=== PATIENT | female | born 1955 | race Caucasian/White ===

== ENCOUNTER 2016-05-31 16:39 | Emergency (ER) | payer OTHER ==
[2016-05-31 16:46] VITALS: BP 142/70; PULSE 62; TEMP 97.7; BMI 23.3
[2016-05-31] MEDS ORDERED: IBUPROFEN 600 MG TABLET (FP) PO ONE ×2 (16:47→17:07)
--- NOTE | 2016-05-31 16:47 | PDOC ---
Rapid Medical Evaluation Chief Complaint: Pain Time Seen by Provider: 05/31/16 16:42 Medical Evaluation: Allergies Allergy/AdvReac Type Severity Reaction Status Date / Time No Known Allergies Allergy Verified 05/31/16 16:42 05/31/16 16:45 RME Note: I have performed a brief, in-person evaluation of this patient . This patient presents with CC: 1 weekof left lleg pain Pertinent PE findings are: VSS I have ordered: nothing, motrin given in triage The patient will proceed to ED for further evaluation. JR
--- NOTE | 2016-05-31 17:34 | PDOC ---
History of Present Illness - General Chief Complaint: Pain Stated Complaint: LT LEG PAIN Time Seen by Provider: 05/31/16 16:42 History Source: Patient Exam Limitations: No Limitations - History of Present Illness Initial Comments: 05/31/16 17:41 Chief complaint: Left-sided lower back pain radiating down left leg 5 days History of present illness: Patient is a 60-year-old female with a history of lumbar sacral laminectomy 2001, pt. since surgery needs to self caterize few times daily. Is here today due to left-sided lower back pain that radiates down her left leg to her toes that is worse in the last 5 days. Patient reports that she is has pain daily since her surgery however it is worse in the last 5 days. Patient is any numbness of her leg. Patient reports the pain currently as out of 10. Pt. is ambulating without difficulty or limp. 05/31/16 17:48 Timing/Duration: getting worse Severity: severe (left sided lower back radiating down left leg ) Associated Symptoms: reports: denies symptoms Past History - Past Medical History Allergies/Adverse Reactions: Allergies Allergy/AdvReac Type Severity Reaction Status Date / Time No Known Allergies Allergy Verified 05/31/16 16:42 Home Medications: Ambulatory Orders No Home Medications 0 dose .ROUTE UTDICT 11/18/11 Oxycodone HCl/Acetaminophen [Percocet 5-325 mg Tablet] 1 tab PO Q6H PRN #9 tablet MDD 3 05/31/16 Disorders: Yes (must self-catheterize 4xdaily as a result of the laminectomy and fusion per) - Surgical History Neurologic Surgery: Yes (spine) Orthopedic Surgery: Yes (spinal surgery) - Psycho/Social/Smoking Cessation Hx Anxiety: No Suicidal Ideation: No Smoking Status: No Smoking History: Never smoked Have you smoked in the past 12 months: No Number of Cigarettes Smoked Daily: 0 Information on smoking cessation initiated: No Hx Alcohol Use: No Drug/Substance Use Hx: No Substance Use Type: None Review of Systems - Review of Systems Able to Perform ROS?: Yes Constitutional: No: Symptoms Reported HEENTM: No: Symptoms Reported Respiratory: No: Symptoms reported Cardiac (ROS): No: Symptoms Reported ABD/GI: No: Symptoms Reported : Yes: Other (has to self catherize daily since laminectomy 2001) Musculoskeletal: Yes: Back Pain (left sided lower back pain radiates down left leg to ft worse in last 5 days) Integumentary: No: Symptoms Reported Neurological: Yes: Other. No: Unsteady Gait *Physical Exam - Vital Signs Last Vital Signs Temp Pulse Resp BP Pulse Ox 97.7 F 62 18 142/70 100 05/31/16 16:43 05/31/16 16:43 05/31/16 16:43 05/31/16 16:43 05/31/16 16:43 - Physical Exam General Appearance: Yes: Appropriately Dressed Respiratory/Chest: positive: Lungs Clear, Normal Breath Sounds. negative: Chest Tender, Respiratory Distress Cardiovascular: positive: Regular Rhythm, Regular Rate, S1, S2 Musculoskeletal: positive: Decreased Range of Motion (from waist ), Other (left sided lower back pain ). negative: CVA Tenderness, CVA Tenderness (R), CVA Tenderness (L) Extremity: positive: Normal Capillary Refill, Normal Inspection Neurologic: positive: Alert, Normal Response, Motor Strength 5/5 (b/l legs ), Respond to painful stimul (left leg/thigh), Responsive, Sensory Deficit (since laminectomy 2001 decreased sensation to urinate) ED Treatment Course - Medications Given in the ED: ED Medications Discontinued Medications Generic Name Dose Route Start Last Admin Trade Name Freq PRN Reason Stop Dose Admin Ibuprofen 600 mg 05/31/16 16:47 05/31/16 17:21 Motrin - PO 05/31/16 16:48 600 mg ONCE ONE Administration Medical Decision Making - Medical Decision Making 05/31/16 17:48 Patient is a 60-year-old female with a history of lumbar sacral laminectomy 2001 , pt. since surgery needs to self caterize few times daily. Is here today due to left-sided lower back pain that radiates down her left leg to her toes that is worse in the last 5 days. Patient reports that she is has pain daily since her surgery however it is worse in the last 5 days. Patient is any numbness of her leg. Patient reports the pain currently as out of 10. Pt. is ambulating without difficulty or limp. left sided lower back pain with radiculopathy PLAN: xray spine lumbar sacral spine reveals minimal moll retrolisthesis of L4 over L5 likely degenerative. Mild loss of height compression of T11 vertebral body likely old otherwise the height and alignment and vertebral bodies appear unremarkable. There is a moderate narrowing of L4-L5 and L5-S1 intravertebral disc space with mild to moderate degenerative disc disease notes made of a catheter extending from the left lower chest down to the pelvis suggestive of a ventricular peritoneal shunt per Dr. Irizarry percocet 5mg/325 mg po now than every 6 hrs prn severe pain # 9 follow up with ortho 05/31/16 20:05 *DC/Admit/Observation/Transfer Diagnosis at time of Disposition: Lumbar pain with radiation down left leg - Discharge Dispostion Disposition: HOME Condition at time of disposition: Stable - Prescriptions Prescriptions: Oxycodone HCl/Acetaminophen [Percocet 5-325 mg Tablet] 1 tab PO Q6H PRN #9 tablet MDD 3 PRN Reason: Severe Pain - Referrals Referrals: Sully Romero [Primary Care Provider] - Ramin Overton MD [Staff Physician] - - Patient Instructions Additional Instructions: Avoid any strenuous activities or walking for any long distances Follow up with Dr. Overton as soon as possible this week for further evaluation Return to emergency room if any symptoms worsen or new symptoms develop Patient voiced understanding of discharge instructions and all questions were answered.
[2016-05-31] MEDS ORDERED: OXYCODONE/APAP 5/325MG COMBO TABLET PO ONE (19:04)
[2016-05-31] MEDS ORDERED: OXYCODONE/APAP 5/325MG COMBO TABLET ONE (19:12)
== END 2016-05-31 20:48 | disposition home or self-care (01) ==
LOC: JERFT 16:39
DX: M54.16 Radiculopathy, lumbar region (principal); Z98.890 Other specified postprocedural states; N99.89 Other postprocedural complications and disorders of genitourinary system
CPT/HCPCS: 72100-TC; 99281-25

== ENCOUNTER 2017-08-08 16:14 | Emergency (ER) | payer OTHER ==
[2017-08-08 16:27] VITALS: TEMP 97.6; BMI 24.4
--- NOTE | 2017-08-08 16:28 | PDOC ---
Rapid Medical Evaluation Time Seen by Provider: 08/08/17 16:24 Medical Evaluation: Allergies Allergy/AdvReac Type Severity Reaction Status Date / Time No Known Allergies Allergy Verified 08/08/17 16:23 08/08/17 16:24 I have performed a brief in-person evaluation of this patient. The patient presents with a chief complaint of: Left supraorbital headache radiating to occiput Pertinent physical exam findings: No focal deficits I have ordered the following: CTH, CBC, CMP, coags, UA The patient will proceed to the ED for further evaluation. Discharge Disposition - Diagnosis Headache - Referrals - Patient Instructions - Post Discharge Activity
[2017-08-08] MEDS ORDERED: SODIUM CHLORIDE 1,000 ML IV STA (17:02)
[2017-08-08] MEDS ORDERED: KETOROLAC TROMETHAMINE 30 MG/1 ML VIAL IVPUSH ONE (17:02)
[2017-08-08] MEDS ORDERED: METOCLOPRAMIDE HCL INJECTION 10 MG/2 ML VIAL IVPUSH ONE (17:02)
[2017-08-08 17:04] LABS: BASO % 0.8 % (0-2.0); EOS % 0.8 % (0-4.5); HEMATOCRIT 38.1 % (32.4-45.2); HEMOGLOBIN 12.8 GM/dL (10.7-15.3); LYMPH % 33.4 % (8-40); MCH 29.7 pg (25.7-33.7); MCHC 33.7 g/dl (32.0-36.0); MEAN CELL VOLUME 88.1 fl (80-96); MEAN PLT VOLUME 7.7 fl (7.5-11.1); MONO % 8.4 % (3.8-10.2); NEUT % 56.6 % (42.8-82.8); PLATELET COUNT 313 K/MM3 (134-434); RBC 4.33 M/mm3 (3.60-5.2); RDW 13.7 % (11.6-15.6); WHITE BLOOD COUNT 6.1 K/mm3 (4.0-10.0)
[2017-08-08 17:05] LABS: URINE APPEARANCE SLCLOUDY; URINE BILIRUBIN NEGATIVE (<2.0 mg/dL); URINE COLOR LTYELLOW; URINE GLUCOSE (UA) NEGATIVE (NEGATIVE); URINE KETONE NEGATIVE (NEGATIVE); URINE NITRITE POSITIVE (NEGATIVE); URINE PROTEIN NEGATIVE (NEGATIVE); URINE UROBILINOGEN NEGATIVE mg/dL (0.2-1.0)
[2017-08-08 17:30] LABS: INR 1.06 (0.82-1.09)
[2017-08-08 17:39] LABS: URINE LEUK ESTERASE 3+ (NEGATIVE)
[2017-08-08] MEDS ORDERED: METOCLOPRAMIDE HCL INJECTION 10 MG/2 ML VIAL ONE (17:40)
[2017-08-08 17:41] LABS: ANION GAP 6 (8-16); BILIRUBIN,TOTAL 0.3 mg/dL (0.2-1.0); BLOOD UREA NITROGEN 11 mg/dL (7-18); CALCIUM 9.1 mg/dL (8.5-10.1); CHLORIDE 105 mmol/L (98-107); CO2 29 mmol/L (21-32); CREATININE 0.6 mg/dL (0.55-1.02); GLUCOSE,RANDOM 90 mg/dL (74-106); POTASSIUM 3.8 mmol/L (3.5-5.1); SGOT/AST 19 U/L (15-37); SGPT/ALT 26 U/L (12-78); SODIUM 140 mmol/L (136-145); TOT PROT 7.9 g/dl (6.4-8.2)
[2017-08-08] MEDS ORDERED: KETOROLAC TROMETHAMINE 30 MG/1 ML VIAL ONE (17:41)
--- NOTE | 2017-08-08 17:41 | PDOC ---
History of Present Illness - General Chief Complaint: Headache Stated Complaint: HEADACHE Time Seen by Provider: 08/08/17 16:24 History Source: Patient Exam Limitations: Language Barrier - History of Present Illness Initial Comments: 08/08/17 17:41 Patient is 61F with history of a brain tumor HTN, and sacral laminectomy here today complaining of headache that started almost 24 hours ago. Patient states that her headache started insidiously with gradual worsening of her headache. The pain is located on the left side of her head, worse around her left orbit, with associated light sensitivity. Denies fevers, chills, nausea, vomiting. Denies chest pain and shortness of breath. Review of chart shows prior shunt placed, not able to confirm reason for neurosurgery. Past History - Past Medical History Allergies/Adverse Reactions: Allergies Allergy/AdvReac Type Severity Reaction Status Date / Time No Known Allergies Allergy Verified 08/08/17 16:23 Home Medications: Ambulatory Orders No Home Medications 0 dose .ROUTE UTDICT 11/18/11 Oxycodone HCl/Acetaminophen [Percocet 5-325 mg Tablet] 1 tab PO Q6H PRN #9 tablet MDD 3 05/31/16 Cephalexin Monohydrate [Keflex -] 500 mg PO BID #14 capsule 08/08/17 COPD: No Disorders: Yes (must self-catheterize 4xdaily as a result of the laminectomy and fusion per) HTN: Yes - Surgical History Neurologic Surgery: Yes (spine, tumor removed from neck) Orthopedic Surgery: Yes (spinal surgery) - Suicide/Smoking/Psychosocial Hx Smoking Status: No Smoking History: Never smoked Have you smoked in the past 12 months: No Number of Cigarettes Smoked Daily: 0 Information on smoking cessation initiated: No Hx Alcohol Use: No Drug/Substance Use Hx: No Substance Use Type: None Review of Systems - Review of Systems Comments:: 08/08/17 17:44 GENERAL/CONSTITUTIONAL: No fever or chills. No weakness. HEAD, EYES, EARS, NOSE AND THROAT: No change in vision. No sore throat. CARDIOVASCULAR: No chest pain or shortness of breath RESPIRATORY: No cough, wheezing, or hemoptysis. GASTROINTESTINAL: No nausea, vomiting, diarrhea or constipation. GENITOURINARY: No dysuria, frequency, or change in urination. MUSCULOSKELETAL: No joint or muscle swelling or pain. No neck or back pain. SKIN: No rash NEUROLOGIC: Positive for headache. Negative for vertigo, loss of consciousness, or change in strength/sensation. ENDOCRINE: No increased thirst. No abnormal weight change HEMATOLOGIC/LYMPHATIC: No anemia, easy bleeding, or history of blood clots. ALLERGIC/IMMUNOLOGIC: No hives or skin allergy. *Physical Exam - Vital Signs Last Vital Signs Temp Pulse Resp BP Pulse Ox 97.6 F 78 18 126/82 100 08/08/17 16:24 08/08/17 16:24 08/08/17 16:24 08/08/17 16:24 08/08/17 16:24 - Physical Exam Comments: 08/08/17 17:45 GENERAL: Awake, alert, and fully oriented, in no acute distress, wearing sunglasses inside HEAD: No signs of trauma, normocephalic, atraumatic EYES: PERRLA, EOMI, sclera anicteric, conjunctiva clear ENT: Auricles normal inspection, hearing grossly normal, nares patent, oropharynx clear without exudates. Moist mucosa NECK: Normal ROM, supple, no lymphadenopathy, JVD, or masses LUNGS: No distress, speaks full sentences, clear to auscultation bilaterally HEART: Regular rate and rhythm, normal S1 and S2, no murmurs, rubs or gallops, peripheral pulses normal and equal bilaterally. EXTREMITIES: Normal inspection, Normal range of motion, no edema. No clubbing or cyanosis. NEUROLOGICAL: Cranial nerves II through XII grossly intact. Normal speech, normal gait, no focal sensorimotor deficits SKIN: Warm, Dry, normal turgor, no rashes or lesions noted. ED Treatment Course - LABORATORY CBC & Chemistry Diagram: 08/08/17 16:54 08/08/17 16:54 - ADDITIONAL ORDERS Additional order review: Laboratory Results 08/08/17 08/08/17 16:54 16:54 PT with INR 12.00 INR 1.06 Urine Color Ltyellow Urine Appearance Slcloudy Urine pH 5.0 D Ur Specific [place] 1.014 Urine Protein Negative Urine Glucose (UA) Negative Urine Ketones Negative Urine Blood 1+ H Urine Nitrite Positive Urine Bilirubin Negative Urine Urobilinogen Negative Ur Leukocyte Esterase 3+ H 08/08/17 16:54 RBC 4.33 MCV 88.1 MCHC 33.7 RDW 13.7 MPV 7.7 Neutrophils % 56.6 Lymphocytes % 33.4 D Monocytes % 8.4 Eosinophils % 0.8 Basophils % 0.8 Medical Decision Making - Medical Decision Making 08/08/17 17:45 Patient is 61F with history of brain surgery, HTN, sacral laminectomy here today complaining of headache. Story consistent with migraine. CT head is for evaluation for possibility of mass or fluid collection, not for head bleed, which I believe is very unlikely. Neuro exam normal. Will evaluate with basic labs and ct head. Will treat with reglan and IV fluids. 08/08/17 17:48 Laboratory Tests 08/08/17 08/08/17 08/08/17 16:54 16:54 16:54 WBC 6.1 Hgb 12.8 Hct 38.1 Plt Count 313 D INR 1.06 BUN Creatinine Urine Nitrite Positive Ur Leukocyte Esterase 3+ H 08/08/17 16:54 WBC Hgb Hct Plt Count INR BUN 11 Creatinine 0.6 Urine Nitrite Ur Leukocyte Esterase UA positive. CBC normal. INR normal. Will treat with 7 days of keflex. No CVA tenderness. CT head is negative. Will discharge after patient's symptoms improve. 08/08/17 18:31 Patient reassessed. Symptoms have improved. Will discharge home with return precautions. *DC/Admit/Observation/Transfer Diagnosis at time of Disposition: Headache, UTI (urinary tract infection) - Discharge Dispostion Disposition: HOME Condition at time of disposition: Good Decision to Admit order: No - Prescriptions Prescriptions: Cephalexin Monohydrate [Keflex -] 500 mg PO BID #14 capsule - Referrals - Patient Instructions Printed Discharge Instructions: DI for Urinary Tract Infection (UTI), DI for Migraine Additional Instructions: Please return if you have any new, worsening or concerning symptoms. You were prescribed an antibiotic for a urinary tract infection. Please pick the medication up at your pharmacy. The next dose will be due tomorrow morning. Please take the entire prescription, even if you feel better. Please call to make an appointment with your primary care physician this week. - Post Discharge Activity
[2017-08-08 17:42] LABS: ALK PHOS 128 U/L (45-117)
[2017-08-08] MEDS ORDERED: CEPHALEXIN MONOHYDRATE 500 MG CAPSULE (UD) PO ONE (17:49)
--- NOTE | 2017-08-08 18:33 | PDOC ---
Attending Attestation - HPI HPI: 08/08/17 18:34 The patient is a 61 year old female with HTN, brain tumor, left sided shunt ( brain, for bleeding) and lumbar sacral laminectomy (2001) presents to the emergency department complaining of headache since last night. The patient reports pain is on the left side of the head, which radiates to the back of her head, progressively worsening, with light sensitivity. Patient denies fever, chills, cough, and dizziness. Patient denies chest pain, diaphoresis, palpitations, and shortness of breath. Patient denies nausea, vomiting, diarrhea, and constipation. Patient denies dysuria, frequency, urgency, and hematuria. Allergies: NKDA Social history: None reported PCP: Sully Garcia - Physicial Exam PE: 08/08/17 18:34 GENERAL: Well-appearing, well-nourished. No apparent distress. HEENT: Normocephalic, atraumatic. PERRL, EOM intact. CARDIOVASCULAR: Normal S1, S2. Regular rate and rhythm. PULMONARY: Clear to auscultation bilaterally. ABDOMEN: Soft, non-distended, non-tender. EXTREMITIES: Normal ROM in all four extremities. No gross deformities. SKIN: Warm, dry. No rash NEUROLOGICAL: No gross or motor deficit. No focal neurological deficits. - Medical Decision Making 08/08/17 18:34 Documentation prepared by Heather Zambrano, acting as medical technologist blood bank for Mary Jo Rock MD. <Heather Zambrano - Last Filed: 08/08/17 18:34> - ED Attending Attestation I have performed the following: I have examined & evaluated the patient, The case was reviewed & discussed with the resident, I agree w/resident's findings & plan, Exceptions are as noted - Medical Decision Making 08/09/17 00:00 61 yo female has c/o of persistent headache. She does have a history in the remote past of brain tumor ct scan of brain negative for any acute intracranial pathology IMP tension headache plan followup with neuro if they become recurrent <Mary Jo Rock - Last Filed: 08/09/17 00:02>
[2017-08-08] MEDS ORDERED: CEPHALEXIN MONOHYDRATE 500 MG CAPSULE (UD) ONE (18:47)
[2017-08-08 19:01] VITALS: BP 109/58; PULSE 72
[2017-08-08 19:37] LABS: EPI CELLS RARE /HPF (FEW); URINE BACTERIA RARE /hpf (NONE SEEN); URINE MUCUS RARE
== END 2017-08-08 18:55 | disposition home or self-care (01) ==
LOC: JER 16:14
DX: R51 Headache (principal); N39.0 Urinary tract infection, site not specified; I10 Essential (primary) hypertension; Z86.011 Personal history of benign neoplasm of the brain
CPT/HCPCS: 36415; 70450-TC; 80053; 81003; 81015; 85025; 85610; 99283-25; J7030

== ENCOUNTER 2018-01-12 11:47 | Emergency (ER) | payer OTHER ==
[2018-01-12 11:54] VITALS: BP 137/65; PULSE 83; TEMP 98; BMI 25.7
--- NOTE | 2018-01-12 12:24 | PDOC ---
History of Present Illness - General Chief Complaint: Back Pain Stated Complaint: LEG PAIN Time Seen by Provider: 01/12/18 12:07 History Source: Patient, Manager Enrollment Used (#[id number]) Exam Limitations: Clinical Condition - History of Present Illness Initial Comments: 01/12/18 12:25 Patient with history of chronic lower back pain status post spine surgery 4 years ago present with complain of worsening lower back pain which has not been responding to her gabapentin medication. Patient reports she was told she had patient nerve for years ago and had to have surgery done. Patient reports she has been having back pain since the surgery area patient hasn't follow-up for over a year now. Patient reported pain radiating to back of right thigh. Patient denies any other symptoms Timing/Duration: 1 week Past History - Past Medical History Allergies/Adverse Reactions: Allergies Allergy/AdvReac Type Severity Reaction Status Date / Time No Known Allergies Allergy Verified 01/12/18 11:51 Home Medications: Ambulatory Orders Methocarbamol [Robaxin -] 500 mg PO TID #21 tablet 01/12/18 Naproxen [Naprosyn] 500 mg PO BID PRN #30 tablet 01/12/18 Oxycodone HCl/Acetaminophen [Percocet 5-325 mg Tablet] 1 tab PO Q6H PRN #5 tablet MDD 2 01/12/18 COPD: No Disorders: Yes (must self-catheterize 4xdaily as a result of the laminectomy and fusion per) HTN: Yes - Surgical History Neurologic Surgery: Yes (spine, tumor removed from neck) Orthopedic Surgery: Yes (spinal surgery) - Suicide/Smoking/Psychosocial Hx Smoking Status: No Smoking History: Never smoked Have you smoked in the past 12 months: No Number of Cigarettes Smoked Daily: 0 Hx Alcohol Use: No Drug/Substance Use Hx: No Substance Use Type: None Review of Systems - Review of Systems Able to Perform ROS?: Yes Is the patient limited Sami proficient: No Constitutional: No: Weakness Respiratory: No: Symptoms reported Cardiac (ROS): No: Symptoms Reported ABD/GI: No: Symptoms Reported Musculoskeletal: Yes: Back Pain (right side), Muscle Pain (lower back). No: Muscle Weakness Neurological: No: Numbness, Tingling All Other Systems: Reviewed and Negative *Physical Exam - Vital Signs Last Vital Signs Temp Pulse Resp BP Pulse Ox 98.0 F 83 18 137/65 100 10/18/18 11:52 01/12/18 11:52 01/12/18 11:52 01/12/18 11:52 01/12/18 11:52 - Physical Exam Comments: 01/12/18 12:31 GENERAL: Well developed, well nourished. Awake and alert. No acute distress. CARDIOVASCULAR: Regular rate and rhythm. No murmurs, rubs, or gallops. PULMONARY: No evidence of respiratory distress. Lungs clear to auscultation bilaterally. No wheezing, rales or rhonchi. ABDOMINAL: Soft. Non-tender. Non-distended. No rebound or guarding. No organomegaly. Normoactive bowel sounds MUSCULOSKELETAL : mild tenderness over posterior paravertebral muscle of right lower lumbosacral of L2-S2. No bony deformities EXTREMITIES: No cyanosis. No clubbing. No edema. No calf tenderness. SKIN: Warm and dry. Normal capillary refill. No rashes. No jaundice. NEUROLOGICAL: Alert, awake, appropriate. No motor deficits in the lower extremities. Gait is normal without ataxia. PSYCHIATRIC: Cooperative. Good eye contact. Appropriate mood and affect. General Appearance: Yes: Nourished, Appropriately Dressed, Mild Distress Medical Decision Making - Medical Decision Making 01/12/18 12:31 Patient with history of chronic lower back pain status post lower back surgery 4 years ago presenting with complain of worsening lower back pain radiating to right posterior leg. Denies any new trauma or injury. Exam significant for moderate tenderness to lumbosacral spine. X-ray of lumbosacral ordered. Toradol 60 mg IM given for pain. Treat based on imaging results 01/12/18 13:14 x-rays of lumbosacral show no acute spine pathology. tube for RACKMAN shunt visible in periteneal cavity. patient had MRI done 2 months ago and being follow-up by neurology. patient stable for discharge with orthopedics follow-up *DC/Admit/Observation/Transfer Diagnosis at time of Disposition: Lumbago with sciatica, right side Qualifiers: Chronicity: chronic Back pain laterality: right Qualified Code(s): M54.41 - Lumbago with sciatica, right side - Discharge Dispostion Disposition: HOME Condition at time of disposition: Stable Decision to Admit order: No - Prescriptions Prescriptions: Methocarbamol [Robaxin -] 500 mg PO TID #21 tablet Naproxen [Naprosyn] 500 mg PO BID PRN #30 tablet PRN Reason: Back Pain Oxycodone HCl/Acetaminophen [Percocet 5-325 mg Tablet] 1 tab PO Q6H PRN #5 tablet MDD 2 PRN Reason: severe back pain - Referrals Referrals: Sully Romero [Primary Care Provider] - Pop Alvarez MD [Staff Physician] - Piter Herbert MD [Staff Physician] - - Patient Instructions Printed Discharge Instructions: DI for Sciatica, DI for Back Pain With Sciatica Additional Instructions: Take medications as prescribed for back pain. Apply heat therapy to lower back. Follow-up with preferred neurosurgery for follow-up and possible MRI of lower back - Post Discharge Activity
[2018-01-12] MEDS ORDERED: KETOROLAC TROMETHAMINE 60 MG/2 ML VIAL IM ONE (12:25)
[2018-01-12] MEDS ORDERED: KETOROLAC TROMETHAMINE 60 MG/2 ML VIAL ONE (12:26)
== END 2018-01-12 13:26 | disposition home or self-care (01) ==
LOC: JERFT 11:47
PROC: 3E0233Z Introduction of Anti-inflammatory into Muscle, Percutaneous Approach (ICD-10-PCS; principal; 2018-01-12)
DX: M54.41 Lumbago with sciatica, right side (principal); Z87.448 Personal history of other diseases of urinary system; Z96.89 Presence of other specified functional implants
CPT/HCPCS: 72100-TC-FY; 99281-25

== ENCOUNTER 2018-02-03 16:12 | Emergency (ER) | payer OTHER ==
--- NOTE | 2018-02-03 16:36 | PDOC ---
Rapid Medical Evaluation Time Seen by Provider: 02/03/18 16:34 Medical Evaluation: Allergies Allergy/AdvReac Type Severity Reaction Status Date / Time No Known Allergies Allergy Verified 01/12/18 11:51 02/03/18 16:34 Pt presents for low back pain radiating down the L lower leg. Pt states she has been seen multiple times for her pain. Exam: Pt walking with limp. No obvious neuro deficit Orders: nothing Pt to proceed to ED for further evaluation Discharge Disposition - Diagnosis Low back pain - Referrals - Patient Instructions - Post Discharge Activity
[2018-02-03 16:39] VITALS: BP 131/61; PULSE 79; TEMP 98.8; BMI 24.5
--- NOTE | 2018-02-03 17:50 | PDOC ---
History of Present Illness - General Chief Complaint: Back Pain Stated Complaint: FOOT PAIN Time Seen by Provider: 02/03/18 16:34 History Source: Patient Exam Limitations: No Limitations - History of Present Illness Initial Comments: CHIEF COMPLAINT: 62 y/o female with chronic low back pain c/o continued left leg pain for over 6 months. HISTORY OF PRESENT ILLNESS: The patient was seen here about 1 month ago with the same complaint. She denies any new or recent injury or fall. Xray on was negative. MRI of lumbar spine in november was unchanged from 07/2016. The patient was taking naproxen and percocet, continues to take gabapentin without relief. She states she has trouble sleeping because of the pain. She denies saddle anesthesia, numbness/tingling to LEs. THe patient has not f/u with her PMD for this chronic issue. Vital signs on arrival are within normal limits. REVIEW OF SYSTEMS: GENERAL/CONSTITUTIONAL: No fever/chills. No weakness. No weight change. GENITOURINARY: No dysuria, frequency, or change in urination. No bowel or bladder incontinence MUSCULOSKELETAL: +left low back pain radiating to left leg. No joint or muscle swelling or pain. No neck pain. SKIN: No rash or easy bruising. NEUROLOGIC: No headache, vertigo, loss of consciousness, or loss of sensation. PHYSICAL EXAM: GENERAL: The patient is awake, alert, and fully oriented, in no acute distress. HEAD: Normal with no signs of trauma. ABDOMEN: Soft, non-distended, non-tender even to deep palpation, no hepatomegaly or splenomegaly, no masses. BACK: No midline lumbar spine TTP or step offs. EXTREMITIES: Normal range of motion, no edema. Pain with palpation of left gluteal muscles. Very tight left piriformis muscle. NEUROLOGICAL: Normal speech, normal gait. CN II-XII grossly intact. No saddle anesthesia. SKIN: Warm, dry, normal turgor, no rashes or lesions noted. Past History - Past Medical History Allergies/Adverse Reactions: Allergies Allergy/AdvReac Type Severity Reaction Status Date / Time No Known Allergies Allergy Verified 02/03/18 17:30 Home Medications: Ambulatory Orders Diazepam [Valium] 5 mg PO BID #12 tablet MDD 3 02/03/18 COPD: No Disorders: Yes (must self-catheterize 4xdaily as a result of the laminectomy and fusion per) HTN: Yes - Surgical History Neurologic Surgery: Yes (spine, tumor removed from neck) Orthopedic Surgery: Yes (spinal surgery) - Immunization History Immunization Up to Date: Yes - Suicide/Smoking/Psychosocial Hx Smoking Status: No Smoking History: Never smoked Have you smoked in the past 12 months: No Number of Cigarettes Smoked Daily: 0 Hx Alcohol Use: No Drug/Substance Use Hx: No Substance Use Type: None *Physical Exam - Vital Signs Last Vital Signs Temp Pulse Resp BP Pulse Ox 98.8 F 79 16 131/61 99 02/03/18 16:35 02/03/18 16:35 02/03/18 16:35 02/03/18 16:35 02/03/18 16:35 Medical Decision Making - Medical Decision Making A/P: 62 y/o female with chronic low back pain and left sided sciatica issues for over 3 months. Patient was seen here 1 month ago with negative lumbar spine xray. Lumbar MRI taken 11/2017 was unchanged from 07/2016. No new imaging needed at this time. Instructed the patient on some stretching exercises she can do to help her pain. INstructed her to perform them 5 times per day. Will send rx for few days worth of valium. Suggested heat and massage to affected area. Instructed her to call her regular doctor on Tuesday and schedule a follow up appointment. The patient verbalizes understanding of all instructions, has no further questions and is awaiting discharge. *DC/Admit/Observation/Transfer Diagnosis at time of Disposition: Piriformis syndrome of left side Low back pain Qualifiers: Chronicity: acute Back pain laterality: left Sciatica presence: with sciatica Sciatica laterality: sciatica of left side Qualified Code(s): M54.42 - Lumbago with sciatica, left side Sciatica Qualifiers: Laterality: left Qualified Code(s): M54.32 - Sciatica, left side - Discharge Dispostion Disposition: HOME Condition at time of disposition: Good - Prescriptions Prescriptions: Diazepam [Valium] 5 mg PO BID #12 tablet MDD 3 - Referrals Referrals: Sully Romero [Primary Care Provider] - (Call Tuesday and schedule follow up appointment as soon as possible) - Patient Instructions Printed Discharge Instructions: DI for Back Pain With Sciatica Additional Instructions: Discharge Instructions: -You have sciatica and piriformis syndrome -a prescription for medication has been sent to your pharmacy; it may cause you to be sleepy -Perform leg stretches 5 times per day as shown to you in the ER -Apply heating pad and massage to left buttock -Call Dr. Romero on Tuesday and schedule follow up appointment Instrucciones de descarga: -Usted tiene citica y sndrome piriforme. -kofi receta para medicamentos finn sido enviada a [place] [facility]; puede hacer que tengas sueo -Realice estiramientos de piernas 5 veces al da cindy se le muestra en la yoan de emergencias -Aplicar almohadilla trmica y masaje al glteo wesley. -Llamar al Dr. Romero el kerline y programar kofi paul de seguimiento. Print Language: SLOVAK - Post Discharge Activity
== END 2018-02-03 18:19 | disposition home or self-care (01) ==
LOC: JERFT 16:12
DX: M54.42 Lumbago with sciatica, left side (principal); G57.02 Lesion of sciatic nerve, left lower limb
CPT/HCPCS: 99281-25

== ENCOUNTER 2018-12-23 13:15 | Emergency (ER) | payer OTHER ==
[2018-12-23 13:29] VITALS: BP 122/66; PULSE 81; TEMP 98.4; BMI 23.3
[2018-12-23] MEDS ORDERED: LORATADINE 10 MG TABLET PO ONE (14:15)
[2018-12-23] MEDS ORDERED: LORATADINE 10 MG TABLET ONE (14:17)
--- NOTE | 2018-12-23 14:19 | PDOC ---
History of Present Illness - General Chief Complaint: Rash Stated Complaint: Rash Time Seen by Provider: 12/23/18 13:46 History Source: Patient Exam Limitations: No Limitations (Interpretor ID: [id number]) - History of Present Illness Location: reports: extremities (generalized itching X 3 days), face Past History - Travel Traveled outside of the country in the last 30 days: No Close contact w/someone who was outside of country & ill: No - Past Medical History Allergies/Adverse Reactions: Allergies Allergy/AdvReac Type Severity Reaction Status Date / Time No Known Allergies Allergy Verified 02/03/18 17:30 Home Medications: Ambulatory Orders Amlodipine Besylate [Norvasc -] 1 tab PO DAILY 09/11/18 Aspirin [ASA -] 1 tab PO DAILY 09/11/18 Baclofen 1 tab PO DAILY PRN 09/11/18 Carbamazepine [Tegretol -] 1 tab PO BID 09/11/18 Enalapril Maleate 5 mg PO DAILY 09/11/18 Gabapentin 1 cap PO DAILY 09/11/18 Nabumetone [Relafen -] 1 tab PO BID 09/11/18 Simvastatin [Zocor -] 1 tab PO DAILY 09/11/18 levETIRAcetam [Keppra -] 1,000 mg PO BID 09/11/18 Cetirizine HCl 10 mg PO DAILY 30 Days #30 tablet 12/23/18 Triamcinolone 0.5% Ointment [Aristocort 0.5% Ointment -] 0 gm TP BID 7 Days #60 grams 12/23/18 COPD: No Diabetes: No Disorders: Yes (must self-catheterize 4xdaily as a result of the laminectomy and fusion per) HTN: Yes Hypercholesterolemia: Yes Seizures: Yes - Surgical History Neurologic Surgery: Yes (spine, tumor removed from neck) Orthopedic Surgery: Yes (spinal surgery) - Immunization History Immunization Up to Date: Yes - Psycho Social/Smoking Cessation Hx Smoking Status: No Smoking History: Unknown if ever smoked Have you smoked in the past 12 months: No Number of Cigarettes Smoked Daily: 0 Information on smoking cessation initiated: No Hx Alcohol Use: No Drug/Substance Use Hx: No Substance Use Type: None Review of Systems - Review of Systems Constitutional: No: Chills, Fever Respiratory: No: Wheezing Integumentary: Yes: Pruritus. No: Erythema, Rash, Sweating *Physical Exam - Vital Signs Last Vital Signs Temp Pulse Resp BP Pulse Ox 98.4 F 81 16 122/66 98 12/23/18 13:25 12/23/18 13:25 12/23/18 13:25 12/23/18 13:25 12/23/18 13:25 - Physical Exam General Appearance: Yes: Nourished Respiratory/Chest: positive: Lungs Clear, Normal Breath Sounds Cardiovascular: positive: Regular Rhythm, Regular Rate, S1, S2 Integumentary: negative: Erythema, Hives, Rash, Swelling, Ecchymosis Neurologic: positive: pricing lead II-XII NML intact, Fully Oriented, Alert, Normal Mood/ Affect, Normal Response, Motor Strength 07/30 Medical Decision Making - Medical Decision Making 12/23/18 14:15 generalized pruritus X 3 days no rash denies new foods, drinks or lotion pt reports itching is pronounced when she takes her BP med and flexeril which she been taking for over a year 12/23/18 16:00 Discharge - Discharge Information Problems reviewed: Yes Clinical Impression/Diagnosis: Pruritus Condition: Stable Disposition: HOME - Admission No - Additional Discharge Information Prescriptions: Cetirizine HCl 10 mg PO DAILY 30 Days #30 tablet Triamcinolone 0.5% Ointment [Aristocort 0.5% Ointment -] 0 gm TP BID 7 Days #60 grams Prescription Drug Monitoring Program (I-STOP) results: I-STOP not reviewed - Follow up/Referral Referrals: Pavithra Rea MD [Staff Physician] - - Patient Discharge Instructions Patient Printed Discharge Instructions: DI for Itching Additional Instructions: Please call Dermatology for an appointment Take medication as prescribed Return to the ER If worsening symptoms occurs. Print Language: AZERI - Post Discharge Activity
== END 2018-12-23 14:51 | disposition home or self-care (01) ==
LOC: JERFT 13:15
DX: L29.8 Other pruritus (principal); I10 Essential (primary) hypertension; G40.909 Epilepsy, unspecified, not intractable, without status epilepticus; E78.00 Pure hypercholesterolemia, unspecified
CPT/HCPCS: 99281-25

== ENCOUNTER 2019-03-08 15:17 | Emergency (ER) | payer OTHER ==
[2019-03-08 15:23] VITALS: BMI 22.6
--- NOTE | 2019-03-08 17:10 | PDOC ---
Attending Attestation - Resident Resident Name: Kaylin Nicolas - ED Attending Attestation I have performed the following: I have examined & evaluated the patient, The case was reviewed & discussed with the resident, I agree w/resident's findings & plan, Exceptions are as noted - HPI HPI: 03/08/19 18:17 Ms. Camacho is a 63 yo F h/o brain tumor (1991 s/p surgical resection) with resulting epilepsy, HTN, HLD, herniated discs, sacral laminectomy, s/p cholecystectomy. Pt presents to the ER with a complain of a MIRELES that has been present for the past 2 months. Headache has been gradually worsening, located on the L sided, radiating into her L eye, associated with dizziness and N/V. (+) diplopia +) blurry vision Last seizure was > 1 year ago. She was seen by her neurologist Dr. Stanley Johnson yesterday who ordered an MRI which she thought was scheduled for today She found out that the MRI is scheduled for Tuesday, was unwilling to wait, and so she came to the ED. Pain relieved by Tylenol - Physicial Exam PE: 03/08/19 17:10 GENERAL: The patient is in no acute distress. ENT: Ears normal, nares patent, oropharynx clear without exudates. Moist mucous membranes. NECK: Normal range of motion, supple LUNGS: Breath sounds equal, clear to auscultation bilaterally. No wheezes, and no crackles. HEART:Regular rate and rhythm, normal S1 and S2 without murmur, rub or gallop. ABDOMEN: Soft, nontender, normoactive bowel sounds. EXTREMITIES: Normal range of motion, no edema. NEUROLOGICAL: Cranial nerves II through XII grossly intact. Normal speech. No focal neurological deficits. SKIN: Warm, Dry, normal turgor, no rashes or lesions noted. 03/08/19 18:24 - Medical Decision Making 03/08/19 18:24 63 yo F presenting with CHRONIC headache, has history of brain tumor s/p resection and associated visual changed Pt requesting MRI Will do: Analgesia CT head Will Re Assess 03/10/19 21:09 CT head: No evidence of acute subarachnoid hemorrhage, left parietal ventricular drain catheter in place, left lateral and third ventricle appear slitlike in appearance. No obstructive hydrocephalus Patient headache improved with Tylenol and Reglan Will discharge to home Patient will follow-up for MRI as already scheduled Clinical impression: Chronic headache, initial presentation
--- NOTE | 2019-03-08 17:22 | PDOC ---
History of Present Illness - General Chief Complaint: Headache Stated Complaint: HEADACHE Time Seen by Provider: 03/08/19 16:24 - History of Present Illness Initial Comments: 03/08/19 17:21 63 yo F PMH brain tumor (1991 s/p surgery), L parietal ventricular shunt, epilepsy, HTN, HLD, herniated discs, sacral laminectomy, s/p cholecystectomy, p/ w MIRELES. Patient is Latvian speaking only, line appliance assembler service used. Reports that her MIRELES has been present for the past two months, and has been gradually worsening. L sided, radiating into her L eye, associated with dizziness and N/V. Describes her dizziness as being triggered by moving her head quickly or sitting up quickly, but further reports that she will fall down with foam coming out of her mouth sometimes. Also complains of intermittent blurry vision and double vision. States that she will be awake the whole time. Her last seizure was over a year ago. Patient reports that she is on Keppra. She is here today because she saw her neurologist Dr. Stanley Johnson yesterday due to her long standing headaches. She was scheduled for an MRI which she thought would happen today. However, she found out that the MRI is scheduled for Tuesday, was unwilling to wait, and so she came to the ED. States that her pain has been responsive to acetaminophen at home. Endorses L sided headache radiating into her L eye, N/V, blurry vision, double vision, dizziness. Denies CP, SOB, abd pain, urinary changes, constipation/ diarrhea, fevers/chills. Past History - Past Medical History Allergies/Adverse Reactions: Allergies Allergy/AdvReac Type Severity Reaction Status Date / Time No Known Allergies Allergy Verified 03/08/19 15:23 Home Medications: Ambulatory Orders Amlodipine Besylate [Norvasc -] 1 tab PO DAILY 09/11/18 Aspirin [ASA -] 1 tab PO DAILY 09/11/18 Baclofen 1 tab PO DAILY PRN 09/11/18 Carbamazepine [Tegretol -] 1 tab PO BID 09/11/18 Enalapril Maleate 5 mg PO DAILY 09/11/18 Gabapentin 1 cap PO DAILY 09/11/18 Nabumetone [Relafen -] 1 tab PO BID 09/11/18 Simvastatin [Zocor -] 1 tab PO DAILY 09/11/18 levETIRAcetam [Keppra -] 1,000 mg PO BID 09/11/18 Cetirizine HCl 10 mg PO DAILY 30 Days #30 tablet 12/23/18 Triamcinolone 0.5% Ointment [Aristocort 0.5% Ointment -] 0 gm TP BID 7 Days #60 grams 12/23/18 COPD: No Diabetes: No Disorders: Yes (must self-catheterize 4xdaily as a result of the laminectomy and fusion per) HTN: Yes Hypercholesterolemia: Yes Seizures: Yes - Surgical History Neurologic Surgery: Yes (spine, tumor removed from neck) Orthopedic Surgery: Yes (spinal surgery) - Immunization History Immunization Up to Date: Yes - Psycho Social/Smoking Cessation Hx Smoking Status: No Smoking History: Never smoked Have you smoked in the past 12 months: No Number of Cigarettes Smoked Daily: 0 Hx Alcohol Use: No Drug/Substance Use Hx: No Substance Use Type: None Review of Systems - Review of Systems Comments:: 03/08/19 18:26 GENERAL/CONSTITUTIONAL: No fever or chills. No weakness. HEAD, EYES, EARS, NOSE AND THROAT: Blurry vision and double vision. No ear pain or discharge. No sore throat. CARDIOVASCULAR: No chest pain or shortness of breath. RESPIRATORY: No cough, wheezing, or hemoptysis. GASTROINTESTINAL: Nausea w/o vomiting, no diarrhea or constipation. GENITOURINARY: No dysuria, frequency, or change in urination. MUSCULOSKELETAL: No joint or muscle swelling or pain. No neck or back pain. SKIN: No rash NEUROLOGIC: L sided headache. No loss of consciousness, or change in strength/ sensation. ENDOCRINE: No increased thirst. No abnormal weight change. HEMATOLOGIC/LYMPHATIC: No anemia, easy bleeding, or history of blood clots. ALLERGIC/IMMUNOLOGIC: No hives or skin allergy *Physical Exam - Vital Signs Last Vital Signs Temp Pulse Resp BP Pulse Ox 97.6 F 83 18 126/69 100 03/08/19 15:18 03/08/19 15:18 03/08/19 15:18 03/08/19 15:18 03/08/19 15:18 - Physical Exam 03/08/19 18:27 Gen: well-developed, well-nourished, NAD Neuro: AAOX4, CN II-XII intact, FTN intact, EOMI, PERRLA, 5/5 strength, SILT. L eye skew. HEENT: atraumatic, normocephalic Neck: trachea midline, supple CV: regular rate, regular rhythm, no murmurs, rubs, or gallops Pulm: CTA b/l, no wheezing Abd: soft, non-distended, non-tender. Large vertical scar in the middle of abdomen. MSK: full ROM, intact pulses Extr: no edema, no deformities Skin: warm, dry Medical Decision Making - Medical Decision Making 03/08/19 18:30 Concern for tumor vs old posterior stroke vs stress headache. - Shari Celaya - CT head - likely dc for outpatient MRI, scheduled this upcoming Tuesday. Take acetaminophen as needed till then. 03/08/19 19:28 CT scan without acute issue. L parietal ventricular drainage catheter in place. Discharge - Discharge Information Problems reviewed: Yes Clinical Impression/Diagnosis: Left-sided headache - Follow up/Referral Referrals: Luan Dial [Primary Care Provider] - - Patient Discharge Instructions Patient Printed Discharge Instructions: DI for Headache Additional Instructions: You were seen with left sided headache. Your CT scan does not have any new changes. Your symptoms got better with medication. Take Tylenol as needed at home, and make sure you got to your follow-up appointment for MRI on Tuesday. Follow up with your primary care doctor within 1 week. Return to the ED if you develop worsening symptoms. - Post Discharge Activity
[2019-03-08] MEDS ORDERED: ACETAMINOPHEN 1000 MG/100 ML VIAL (NON FORMULARY) IVPB ONE (17:35)
[2019-03-08] MEDS ORDERED: METOCLOPRAMIDE HCL INJECTION 10 MG/2 ML VIAL IVPB ONE (17:35)
[2019-03-08] MEDS ORDERED: ACETAMINOPHEN INJECTION 100 ML IVPB ONE (18:03)
[2019-03-08] MEDS ORDERED: METOCLOPRAMIDE HCL INJECTION 10 MG/2 ML VIAL ONE (18:03)
[2019-03-08 19:15] VITALS: BP 111/59; PULSE 72; TEMP 97.7
== END 2019-03-08 19:52 | disposition home or self-care (01) ==
LOC: JERFT 15:17 → JER 15:17
PROC: 3E033NZ Introduction of Analgesics, Hypnotics, Sedatives into Peripheral Vein, Percutaneous Approach (ICD-10-PCS; principal; 2019-03-08)
PROC: 3E033GC Introduction of Other Therapeutic Substance into Peripheral Vein, Percutaneous Approach (ICD-10-PCS; 2019-03-08)
DX: R51 Headache (principal)
CPT/HCPCS: 70450-TC; 99282-25; J0131

== ENCOUNTER 2020-10-01 13:20 | Observation (INO) | payer OTHER ==
[2020-10-01] MEDS ORDERED: SODIUM CHLORIDE 0.9% 500 ML INFUS.BAG IV ONE (15:34)
[2020-10-01] MEDS ORDERED: METOCLOPRAMIDE HCL INJECTION 10 MG/2 ML VIAL IVPUSH ONE (15:34)
[2020-10-01] MEDS ORDERED: ACETAMINOPHEN 1000 MG/100 ML VIAL (NON FORMULARY) IVPB ONE (15:34)
[2020-10-01] MEDS ORDERED: METOCLOPRAMIDE HCL INJECTION 10 MG/2 ML VIAL ONE (16:32)
[2020-10-01] MEDS ORDERED: ACETAMINOPHEN INJECTION 100 ML IVPB ONE (16:32)
[2020-10-01 17:09] LABS: BASO % 0.9 % (0-2.0); EOS % 1.2 % (0-4.5); HEMATOCRIT 39.5 % (32.4-45.2); HEMOGLOBIN 12.9 GM/dL (10.7-15.3); LYMPH % 38.3 % (8-40); MCHC 32.6 g/dl (32.0-36.0); MEAN CELL VOLUME 88.8 fl (80-96); MEAN PLT VOLUME 8.5 fl (7.5-11.1); MONO % 8.2 % (3.8-10.2); NEUT % 51.4 % (42.8-82.8); PLATELET COUNT 276 10^3/uL (134-434); RBC 4.45 M/mm3 (3.60-5.2); RDW 13.5 % (11.6-15.6); WHITE BLOOD COUNT 4.4 K/mm3 (4.0-10.0)
[2020-10-01 17:41] LABS: CALCIUM 9.4 mg/dL (8.5-10.1)
[2020-10-01 17:42] LABS: ALBUMIN 3.8 g/dl (3.4-5.0); BLOOD UREA NITROGEN 9.4 mg/dL (7-18)
[2020-10-01 17:45] LABS: CREATININE 0.6 mg/dL (0.55-1.3)
[2020-10-01 17:46] LABS: BILIRUBIN,TOTAL 0.7 mg/dL (0.2-1)
[2020-10-01 17:47] LABS: TOT PROT 7.2 g/dl (6.4-8.2)
[2020-10-01] MEDS ORDERED: ACETAMINOPHEN 325 MG TABLET (FP) PO ONE (18:35)
[2020-10-01] MEDS ORDERED: ACETAMINOPHEN 325 MG TABLET (FP) ONE (18:39)
[2020-10-02] MEDS ORDERED: MORPHINE SULFATE 2 MG/ML VIAL IVPUSH PRN (00:47)
[2020-10-02] MEDS ORDERED: oxyCODONE HCL 5 MG TABLET PO PRN (00:47)
[2020-10-02] MEDS ORDERED: ACETAMINOPHEN 325 MG TABLET (FP) PO PRN (00:47)
[2020-10-02] MEDS: GABAPENTIN 300 MG CAPSULE PO SCH ×3 (06:54→21:28)
[2020-10-02 08:38] LABS: BASO % 0.9 % (0-2.0); EOS % 1.7 % (0-4.5); HEMATOCRIT 41.8 % (32.4-45.2); HEMOGLOBIN 13.7 GM/dL (10.7-15.3); LYMPH % 44.5 % (8-40); MCH 29.2 pg (25.7-33.7); MCHC 32.9 g/dl (32.0-36.0); MEAN CELL VOLUME 88.9 fl (80-96); MEAN PLT VOLUME 8.6 fl (7.5-11.1); MONO % 12.5 % (3.8-10.2); NEUT % 40.4 % (42.8-82.8); PLATELET COUNT 258 10^3/uL (134-434); RDW 13.5 % (11.6-15.6); WHITE BLOOD COUNT 3.9 K/mm3 (4.0-10.0)
[2020-10-02 08:58] LABS: ALBUMIN 3.8 g/dl (3.4-5.0)
[2020-10-02 08:59] LABS: BLOOD UREA NITROGEN 7.9 mg/dL (7-18); CALCIUM 9.2 mg/dL (8.5-10.1); MAGNESIUM 2.1 mg/dL (1.8-2.4)
[2020-10-02 09:01] LABS: CREATININE 0.6 mg/dL (0.55-1.3)
[2020-10-02 09:02] LABS: PHOSPHOROUS 3.3 mg/dL (2.5-4.9)
[2020-10-02 09:03] LABS: BILIRUBIN,TOTAL 1.1 mg/dL (0.2-1); TOT PROT 7.2 g/dl (6.4-8.2)
[2020-10-02] MEDS: ENALAPRIL MALEATE 2.5 MG TABLET PO SCH (10:36)
[2020-10-02] MEDS: ASPIRIN 325 MG ENTERIC COATED TABLET (FP) PO SCH (10:36)
[2020-10-02] MEDS: ENOXAPARIN NA (PORCINE) 40 MG/0.4 ML DISP.SYRIN SQ SCH (10:37)
[2020-10-02] MEDS ORDERED: PT OWN MED DRAWER 7, Y5N ONE ×2 (12:21→12:39)
[2020-10-02] MEDS: levETIRAcetam XR 750 MG TAB PO SCH ×2 (12:24→21:27)
[2020-10-02] MEDS: CALCIUM 500MG/VIT-D 200 UNITS COMBO TABLET (FP) PO SCH ×2 (12:24→21:28)
[2020-10-02 14:05] VITALS: BMI 25.0
[2020-10-02] MEDS ORDERED: NORTRIPTYLINE HCL 50 MG CAPSULE PO SCH ×2 (20:15)
[2020-10-02] MEDS ORDERED: NORTRIPTYLINE HCL 25 MG CAPSULE PO SCH (21:00)
[2020-10-02] MEDS ORDERED: NORTRIPTYLINE HCL 10 MG CAPSULE PO SCH (22:00)
[2020-10-03] MEDS: GABAPENTIN 300 MG CAPSULE PO SCH (06:25)
[2020-10-03 09:48] LABS: BASO % 1.2 % (0-2.0); EOS % 2.2 % (0-4.5); HEMATOCRIT 41.4 % (32.4-45.2); HEMOGLOBIN 13.7 GM/dL (10.7-15.3); LYMPH % 40.3 % (8-40); MCH 29.4 pg (25.7-33.7); MEAN CELL VOLUME 89.2 fl (80-96); MEAN PLT VOLUME 8.3 fl (7.5-11.1); MONO % 10.5 % (3.8-10.2); NEUT % 45.8 % (42.8-82.8); PLATELET COUNT 279 10^3/uL (134-434); RBC 4.64 M/mm3 (3.60-5.2); RDW 13.6 % (11.6-15.6); WHITE BLOOD COUNT 3.5 K/mm3 (4.0-10.0)
[2020-10-03] MEDS ORDERED: PT OWN MED DRAWER 7, Y5N ONE (10:02)
[2020-10-03 10:20] VITALS: BP 107/64; PULSE 81; TEMP 97
[2020-10-03] MEDS: CALCIUM 500MG/VIT-D 200 UNITS COMBO TABLET (FP) PO SCH (10:20)
[2020-10-03] MEDS: levETIRAcetam XR 750 MG TAB PO SCH (10:21)
[2020-10-03] MEDS: ENALAPRIL MALEATE 2.5 MG TABLET PO SCH (10:21)
[2020-10-03] MEDS: ENOXAPARIN NA (PORCINE) 40 MG/0.4 ML DISP.SYRIN SQ SCH (10:22)
[2020-10-03] MEDS: ASPIRIN 325 MG ENTERIC COATED TABLET (FP) PO SCH (10:22)
[2020-10-03 10:35] LABS: ALBUMIN 3.7 g/dl (3.4-5.0); BLOOD UREA NITROGEN 7.1 mg/dL (7-18); CALCIUM 9.6 mg/dL (8.5-10.1)
[2020-10-03 10:36] LABS: MAGNESIUM 2.1 mg/dL (1.8-2.4)
[2020-10-03 10:38] LABS: BILIRUBIN,TOTAL 0.7 mg/dL (0.2-1); CREATININE 0.7 mg/dL (0.55-1.3); TOT PROT 7.1 g/dl (6.4-8.2)
== END 2020-10-03 11:11 | disposition home or self-care (01) ==
LOC: JER 13:20 → UNDOADMOB 23:00 → INTOOBSV 23:00 → JERBED 23:00 → J5S 10-02 08:50 → JERBED 10-02 10:25 → J5S 10-02 10:25
PROVIDERS: ADMIT Internal Medicine; ATTEND Student in an Organized Health Care Education/Training Program
PROC: 3E033NZ Introduction of Analgesics, Hypnotics, Sedatives into Peripheral Vein, Percutaneous Approach (ICD-10-PCS; principal; 2020-10-02)
PROC: 3E023GC Introduction of Other Therapeutic Substance into Muscle, Percutaneous Approach (ICD-10-PCS; 2020-10-02)
PROC: 3E033GC Introduction of Other Therapeutic Substance into Peripheral Vein, Percutaneous Approach (ICD-10-PCS; 2020-10-02)
PROC: 3E0337Z Introduction of Electrolytic and Water Balance Substance into Peripheral Vein, Percutaneous Approach (ICD-10-PCS; 2020-10-02)
DX: R51.9 Headache, unspecified (principal); Z98.2 Presence of cerebrospinal fluid drainage device; G40.309 Generalized idiopathic epilepsy and epileptic syndromes, not intractable, without status epilepticus; I10 Essential (primary) hypertension; E78.5 Hyperlipidemia, unspecified; M53.3 Sacrococcygeal disorders, not elsewhere classified; Z90.49 Acquired absence of other specified parts of digestive tract; D49.6 Neoplasm of unspecified behavior of brain; R11.2 Nausea with vomiting, unspecified; Z29.9 Encounter for prophylactic measures, unspecified
CPT/HCPCS: 36415; 70260-TC-FY; 70360-TC-FY; 70450-TC; 71045-TC-FY; 74018-TC-FY; 80053; 83735; 84100; 84436; 84443; 85025; 93005; 93010; 96361; 96372; 96374; 96375; 99285-25; C9803; G0378; J0131; U0003; U0005

== ENCOUNTER 2023-10-18 13:42 | Emergency (ER) | payer MEDICARE, OTHER ==
[2023-10-18 13:53] VITALS: BP 115/72; PULSE 89; RESP 18; TEMP 97.7; BMI 27.4
== END 2023-10-18 15:53 | disposition home or self-care (01) ==
LOC: JERFT 13:42
DX: S01.301A Unspecified open wound of right ear, initial encounter (principal); X58.XXXA Exposure to other specified factors, initial encounter
CPT/HCPCS: 99283-25

== ENCOUNTER 2024-03-12 04:31 | Day surgery (SDC) | payer MEDICARE, OTHER ==
[2024-03-05 16:29] VITALS: BMI 33.1
[2024-03-12 11:01] VITALS: RESP 16; TEMP 97.8
[2024-03-12 11:28] VITALS: BP 123/60; PULSE 63
== END 2024-03-12 11:55 | disposition home or self-care (01) ==
LOC: JASU-ENDO 04:31
PROVIDERS: ATTEND Internal Medicine Gastroenterology
PROC: 0DJD8ZZ Inspection of Lower Intestinal Tract, Via Natural or Artificial Opening Endoscopic (ICD-10-PCS; principal; 2024-03-12 09:15)
DX: Z12.11 Encounter for screening for malignant neoplasm of colon (principal); K64.8 Other hemorrhoids

== ENCOUNTER → 2024-07-03 | Day surgery (SDC) | payer MEDICARE, OTHER ==
[2024-07-02 12:46] VITALS: BMI 30.7
[2024-07-03 07:39] VITALS: TEMP 98
[2024-07-03 10:42] VITALS: BP 122/59; PULSE 63; RESP 14
[2024-07-03 11:47] LABS: ALBUMIN 3.9 g/dl (3.4-5.0)
[2024-07-03 11:49] LABS: BILIRUBIN,DIRECT 0.3 mg/dL (0.0-0.2)
[2024-07-03 11:52] LABS: BILIRUBIN,TOTAL 0.7 mg/dL (0.2-1); TOT PROT 7.3 g/dl (6.4-8.2)
== END | disposition home or self-care (01) ==
LOC: JASU-ENDO 06:12
PROVIDERS: ATTEND Internal Medicine Gastroenterology
PROC: 0DB68ZX Excision of Stomach, Via Natural or Artificial Opening Endoscopic, Diagnostic (ICD-10-PCS; principal; 2024-07-03 08:00)
DX: K29.50 Unspecified chronic gastritis without bleeding (principal)
CPT/HCPCS: 36415; 80076; 82103; 82390; 82550; 82553; 82728; 82977; 83540; 83550; 84080; 88305-TC; 88342-TC